=== PATIENT | male | born 1945 | race Caucasian/White ===

== ENCOUNTER 2022-09-21 10:10 | Emergency (ER) | payer MEDICARE, SELFPAY ==
[2022-09-21 10:21] VITALS: BP 174/78; PULSE 51; RESP 18; TEMP 36.6; O2SAT 99; BMI 33.7
[2022-09-21] MEDS: MECLIZINE HCL 12.5 MG TABLET 25 MG PO (10:39)
--- NOTE | 2022-09-21 18:24 | ED.DIZZY ---
HPI - Dizziness General Chief Complaint: Dizziness Stated Complaint: Fall 08/18, hit head/ dizzy now Time Seen by Provider: 09/21/22 10:22 Source: patient and family Mode of arrival: Ambulatory History of Present Illness HPI Narrative: 77-year-old male presents to the ED with 1 week of intermittent vertigo. Patient states that he suffered a fall in August of 2022, following which he has had intermittent vertigo over this last week. Patient was not evaluated after his fall in August, however patient states he had no problems until last week. Patient states he did not lose consciousness from that injury. Patient has had no episodes of nausea or vomiting. Patient describes his vertigo as the room spinning around him. Patient states that the vertigo is instigated by his head movements. Patient denies any vision changes. Patient denies any balance issues. Related Data Previous Rx's Medication Instructions Recorded meclizine 25 mg tablet 25 mg PO TID PRN dizziness 10 days 09/21/22 #30 tabs Allergies Allergy/AdvReac Type Severity Reaction Status Date / Time No Known Drug Allergies Allergy Verified 09/21/22 10:29 Review of Systems Review of Systems ROS Unobtainable: All systems reviewed & are unremarkable except as noted in HPI and below Constitutional Constitutional: Denies chills, Denies fatigue, Denies fever(s), Denies frequent falls, Denies lethargy and Denies weakness Eyes Eyes: Denies change in vision, Denies eye discharge, Denies irritation and Denies loss of vision ENT Ears, Nose, Mouth, and Throat: Denies change in voice, Reports dizziness, Denies neck pain, Denies sore throat and Denies throat swelling Cardiovascular Cardiovascular: Denies chest pain, Denies irregular heart rhythm, Denies lightheadedness, Denies palpitations, Denies dyspnea, Denies dyspnea on exertion and Denies orthopnea Respiratory Respiratory: Denies cough, Denies dyspnea, Denies dyspnea on exertion and Denies wheezing Gastrointestinal Gastrointestinal: Denies abdominal pain, Denies change in bowel habits, Denies diarrhea, Denies nausea and Denies vomiting Genitourinary Genitourinary: Denies hematuria, Denies flank pain, Denies urinary incontinence and Denies urinary urgency Musculoskeletal Musculoskeletal: Denies back pain, Denies muscle weakness, Denies neck pain, Denies numbness and Denies tingling Integumentary/Breasts Skin/Breast: Denies pruritus, Denies erythema, Denies rash and Denies wounds Neurologic Neurologic: Denies behavioral changes, Denies confusion, Reports dizziness, Denies frequent falls, Denies loss of vision, Denies numbness, Denies tingling and Denies weakness Psychiatric Psychiatric: Denies anxiety, Denies behavioral changes, Denies confusion, Denies depression, Denies homicidal ideation and Denies suicidal ideation Endocrine Endocrine: Denies fatigue, Denies flushing and Denies palpitations Hematologic/Lymphatic Hematologic/Lymphatic: Denies easy bruising Allergic/Immunologic Allergic/Immunologic: Denies urticaria, Denies throat swelling and Denies wheezing Patient History Social History Smoking Status: Never smoker Smoking Status: Never smoker alcohol intake frequency: a few times a month Substance Use Type: does not use Exam Narrative Exam Narrative: Const General:?cooperative, healthy appearing and comfortable HENID Head:?normal to inspection Ears:?hearing grossly normal bilaterally Nose:?external nose normal Face and sinus:?normal facial exam and sinuses nontender Mouth:?oral mucosae normal Throat:?posterior oropharynx normal Eyes General:?appearance normal, both eyes and all related structures Neck Neck:?normal visual inspection and no lymphadenopathy noted Resp Effort & Inspection:?normal respiratory effort Auscultation:?clear to auscultation bilaterally Cardio Rate:?regular rate Rhythm:?regular rhythm Neuro General:?patient alert, patient awake and patient oriented x3; CN 3-12 intact bilaterally. PERRLA. Gait is normal. Patient is neurologically intact. Initial Vital Signs Initial Vital Signs: Vital Signs Temperature 97.9 F 09/21/22 10:21 Pulse Rate 51 L 09/21/22 10:21 Respiratory Rate 18 09/21/22 10:21 Blood Pressure 174/78 H 09/21/22 10:21 Pulse Oximetry 99 09/21/22 10:21 Oxygen Delivery Method Room Air 09/21/22 10:21 Course Orders Ordered: Discontinued Medications Meclizine HCl (Meclizine Hcl 12.5 Mg Tablet) 25 mg PO NOW ONE Stop: 09/21/22 10:36 Last Admin: 09/21/22 10:39 Dose: 25 mg Documented By: [facility] MDM - Dizziness MDM Narrative Medical decision making narrative: 77-year-old male presents to the ED with 1 week of intermittent vertigo. Patient's symptoms most consistent with benign peripheral vertigo. Physical exam is reassuring, patient is neurologically intact. Will treat with meclizine. ED return precautions were discussed with patient. Patient verbalized understanding. Patient agrees to follow-up with his PCP for referral to PT. Medical records reviewed: Yes Discharge Plan Departure Patient Disposition: Home Clinical Impression: Benign paroxysmal positional vertigo Instructions: DI for Vertigo Activity Restrictions/Additional Instructions: You were evaluated in the ED today for dizziness. Your physical exam was reassuring, your dizziness is likely due to benign peripheral vertigo. You may take meclizine as prescribed. Please follow-up with your PCP, you may benefit from a physical therapy referral for further evaluation. Return to the ED if your symptoms worsen, you are persistently vomiting. Prescriptions: New meclizine 25 mg tablet 25 mg PO TID PRN (Reason: dizziness) 10 Days Qty: 30 0RF Referrals: Miscellaneous,Doctor, MD [Primary Care Provider] - Stand Alone Forms: Patient Portal/API
== END 2022-09-21 10:43 | disposition home or self-care (01) ==
PROVIDERS: Emergency Provider Student in an Organized Health Care Education/Training Program
DX: H81.10 Benign paroxysmal vertigo, unspecified ear (principal)
CPT/HCPCS: 99283